=== PATIENT | male | born 2005 | race Two or more races ===

== ENCOUNTER 2024-11-02 17:06 | Emergency (ER) | payer OTHER ==
[~2024-11-02] VITALS: Ht 188 cm; Wt 113.6 kg
[2024-11-02] MEDS ORDERED: IPRATROPIUM BROM 0.5 MG/2.5ML INH SOL NEB ONE (17:45)
[2024-11-02] MEDS: KETOROLAC TROMETH 30 MG/ML 1ML VIAL IV ONE (17:45)
[2024-11-02] MEDS ORDERED: ALBUTEROL SULF 2.5 MG/0.5ML(0.5%) NEB SOLN NEB ONE (17:45)
--- NOTE | 2024-11-02 17:52 | ED.PDOC ---
History of Present Illness HPI Comments 18-year-old male with a history of hypertension and bipolar disorder brought in by EMS complaining of chest pain, onset about 90 minutes ago. Patient states he has been trying to get back to [place] where he lives, has been outdoors in the heat with no detention from the heat or place to stay. He states he had just gotten off of a bus, began smoking a cigarette, then developed pressure-like, nonradiating, moderate severity chest pain associated with shortness of breath. He denies fever, cough, nausea, vomiting, diaphoresis or edema. He admits to being off of his medications including antihypertensives and psych medications. He states he would like to see a director case management to be evaluated for a place to stay. services executive consultation was obtained, however I was advised that the patient would only be provided with referral resources. Patient subsequently stated he was having thoughts of harming himself. He denies any plan or having taken any action to harm himself. Chief Complaint: Chest Pain Time Seen by MD: 17:14 Allergies: Coded Allergies: NO KNOWN ALLERGIES (Unverified , 11/02/24) Mode of Arrival: EMS Past Medical History PAST MEDICAL HISTORY: HTN Past Medical History (Other): Bipolar disorder Surgical History: Denies all surgeries Family History Family History: Reviewed,noncontributory to illness Social History Smoker: Cigarettes Alcohol: Sober Drugs: Denies Drug Use Lives In: Homeless All Other Systems: Reviewed and Negative (Comprehensive systems review obtained and negative except for what is stated in the HPI.) Physical Exam General Appearance: No Apparent Distress HEENT: Other (Pupils and face symmetric. Moist mucous membranes.) Neck: Full Range of Motion, Normal Inspection Respiratory: Chest Non-Tender, Lungs Clear, No Accessory Muscle Use, No Respiratory Distress, Normal Breath Sounds Cardiovascular: No Edema, No JVD, Regular Rate/Rhythm Breast Exam: Deferred Gastrointestinal: Non Tender, Soft Genitalia: Deferred Pelvic: Deferred Rectal: Deferred Extremities: Normal inspection, Normal range of motion, Non-tender, No pedal edema Neurologic: Alert (Oriented x4), Normal Affect, Normal Mood, Other (Ambulatory) Cerebellar Function: NOT DONE Reflexes: NOT DONE Skin: Dry, Normal Color, Warm Lymphatic: NOT DONE Was a procedure done? Was a procedure done?: No EKG EKG : Comments Sinus rhythm, rate 95, normal intervals, normal axis, normal QRS, minimal upsloping ST elevation in anterior leads, likely representing early repolarization Differential Dx Considerations may include: Anxiety, chest wall pain, angina, ACS, [place], asthma/COPD, among others X-Ray, Labs, Meds, VS Vital Signs Date Time Temp Pulse Resp B/P (MAP) Pulse Ox O2 Delivery O2 Flow Rate FiO2 11/02/24 20:05 98.6 88 18 136/55 (82) 99 98.6 11/02/24 18:00 16 98 Room Air* 0 21 11/02/24 17:10 98.2 105 18 134/73 99 98.2 11/02/24 17:08 95 Lab Test 11/02/24 20:55 11/02/24 19:09 11/02/24 18:02 Range/Units Troponin I High Sensitivity < 3 L 4 < 3 L </=54 ng/L White Blood Count 8.1 4.4-10.8 10^3/uL Red Blood Count 5.30 4.5-5.90 10^6/uL Hemoglobin 15.3 13.5-17.5 g/dL Hematocrit 45.6 41.0-53.0 % Mean Corpuscular Volume 85.9 80.0-100.0 fL Mean Corpuscular Hemoglobin 28.9 28.0-32.0 pg Mean Corpuscular Hemoglobin Concent 33.7 32.0-36.0 g/dL Red Cell Distribution Width 13.3 11.8-14.3 % Platelet Count 312 140-450 10^3/uL Mean Platelet Volume 6.8 L 6.9-10.8 fL Neutrophils (%) (Auto) 56.7 37.0-80.0 % Lymphocytes (%) (Auto) 33.1 10.0-50.0 % Monocytes (%) (Auto) 8.5 0.0-12.0 % Eosinophils (%) (Auto) 1.4 0.0-7.0 % Basophils (%) (Auto) 0.3 0.0-2.0 % Neutrophils # (Auto) 4.6 1.6-8.6 10 ^3/uL Lymphocytes # (Auto) 2.7 0.4-5.4 10 ^3/uL Monocytes # (Auto) 0.7 0-1.3 10 ^3/uL Eosinophils # (Auto) 0.1 0-0.8 10 ^3/uL Basophils # (Auto) 0 0-0.2 10 ^3/uL Nucleated Red Blood Cells 0.1 % D-Dimer, Quantitative < 0.19 0.0-0.49 mg/L FEU Sodium Level 142 136-145 mmol/L Potassium Level 4.2 3.5-5.1 mmol/L Chloride Level 108 H 98-107 mmol/L Carbon Dioxide Level 25 20-31 mmol/L Anion Gap 9 5-15 Blood Urea Nitrogen 12 9-23 mg/dL Creatinine 0.79 0.700-1.30 mg/dL Glomerular Filtration Rate Calc 131 >90 mL/min BUN/Creatinine Ratio 15.2 10.0-20.0 Serum Glucose 92 74-106 mg/dL Calcium Level 9.8 8.7-10.4 mg/dL Creatine Kinase 182 H 46-171 U/L B-Type Natriuretic Peptide 11.38 0-100 pg/mL PROCEDURE(s): CXRP - CHEST PORTABLE REASON: cp ORDER NUMBER(s): [id number], ACCESSION NUMBER(s): [id number] CHEST RADIOGRAPH Indication: cp Technique: 1 view Comparison: None FINDINGS: Lines and Tubes: None Lungs: No focal consolidation. Pleura: No effusion or pneumothorax. Cardiomediastinal contours: Unremarkable. Other: No acute osseous abnormality. IMPRESSION: 1. No acute cardiopulmonary abnormality. X-Ray, Labs, Meds, VS Comment 18-year-old male with a history of hypertension and bipolar disorder complaining of chest pain and reporting thoughts of harming himself. Vitals remarkable for heart rate 105 Exam unremarkable Rhythm strip independently interpreted by me: Sinus rhythm, rate 85, no ectopy. Chest x-ray unremarkable CBC, basic metabolic panel, BNP, D-dimer unremarkable, total CK 182, urine drug screen pending Patient treated with the following in the ED: Albuterol 5 mg/Atrovent 0.5 mg nebulized, Toradol 30 mg IV On re-evaluation, patient is sleeping but arousable. He is not in any respiratory distress. Pain has improved. Patient is currently medically cleared. Plan is to obtain tele psych consult. Disposition will be per tele psych recommendations. Time of 1ST Reevaluation: 21:57 Reevaluation 1ST: Improved Consultation: Psychiatry, Cured Meats Supervisor Patient Education/Counseling: Diagnosis, Treatment Family Education/Counseling: No Family Present SEPSIS Sepsis Screen Date sepsis recognized/suspect: Nov 02, 2024 Time Sepsis recognized/suspect: 1709 Recent Procedure: No On Antibiotic Therapy: No Respiratory Rate >20: No Heart Rate >90: No Temp<36 C (96.8 F) or >38.3 C: No SBP <90 or MAP <65 mmHG: No New Acute Mental Status Change: No Is the patient on CPAP, BIPAP,: No Physician Orders Chest Portable (11/02/24 17:31) Urinalysis (11/02/24 17:14) Electrocardigram (11/02/24 17:14) Drug Screen (11/02/24 17:14) Electrocardigram (11/02/24 18:14) Electrocardigram (11/02/24 20:14) * Cured Meats Supervisor Consult (11/02/24 ) *Tele Psych Consult (11/02/24 21:47) Vital Signs Date Time Temp Pulse Resp B/P (MAP) Pulse Ox O2 Delivery O2 Flow Rate FiO2 11/02/24 20:05 98.6 88 18 136/55 (82) 99 98.6 11/02/24 18:00 16 98 Room Air* 0 21 11/02/24 17:10 98.2 105 18 134/73 99 98.2 11/02/24 17:08 95 Laboratory Tests Test 11/02/24 18:02 White Blood Count 8.1 10^3/uL (4.4-10.8) Departure 1 Departure Time of Disposition: 21:58 Impression: Primary Impression: Chest pain with low risk for cardiac etiology Additional Impression: Thoughts of self harm Disposition: 30 STILL A PATIENT Condition: Stable Critical Care Note Critical Care Time?: No Stability Stability form required: No Heart Score Heart Score: Heart Score Response (Comments) Value History Slightly Suspicious 0 EKG Repolarization Disturb 1 Age <45 0 Risk Factors 1 or 2 risk factors 1 Troponin Normal limit 0 Total 2 JANNA DEAN MD Nov 02, 2024 17:52
[2024-11-02] MEDS ORDERED: IPRATROPIUM BROM 0.5 MG/2.5ML INH SOL ONE (18:00)
[2024-11-02] MEDS ORDERED: ALBUTEROL SULF 2.5 MG/0.5ML(0.5%) NEB SOLN ONE (18:00)
[2024-11-02 18:20] LABS: Hematocrit 45.6 % (41.0-53.0); Hemoglobin 15.3 g/dL (13.5-17.5); Mean Corpuscular Hemoglobin 28.9 pg (28.0-32.0); Mean Corpuscular Volume 85.9 fL (80.0-100.0); Nucleated Red Blood Cells % 0.1 %
[2024-11-02 18:31] LABS: Potassium 4.2 mmol/L (3.5-5.1); Sodium 142 mmol/L (136-145)
[2024-11-02 18:32] LABS: Anion Gap 9 (5-15); Carbon Dioxide 25 mmol/L (20-31)
[2024-11-02 18:33] LABS: Calcium 9.8 mg/dL (8.7-10.4)
[2024-11-02 18:34] LABS: Chloride 108 mmol/L (98-107)
[2024-11-02 18:37] LABS: BUN/Creatinine Ratio 15.2 (10.0-20.0); Blood Urea Nitrogen 12 mg/dL (9-23); Glucose 92 mg/dL (74-106)
--- NOTE | 2024-11-02 22:41 | DVH ---
CHEST RADIOGRAPH Indication: cp Technique: 1 view Comparison: None FINDINGS: Lines and Tubes: None Lungs: No focal consolidation. Pleura: No effusion or pneumothorax. Cardiomediastinal contours: Unremarkable. Other: No acute osseous abnormality. IMPRESSION: 1. No acute cardiopulmonary abnormality.
--- NOTE | 2024-11-03 03:03 | DVHINCON2 ---
Date of Service if different f: Nov 03, 2024 Time of Service: 03:03 Consult Consult Note PSYCHIATRY ED NEW CONSULT HPI: 18 yo pt with PPH of depression presents to ED BIBA for safety, psychiatric stabilization, and possible med initiation/optimization in setting of homelessness, CP, and passive SI. Psychiatry consulted for safety evaluation and recommendations in context of current presentation Pt reports over past several weeks experiencing worsening depressed mood, hopelessness/helplessness, negative thoughts, poor sleep, low self-worth and anxiety symptoms to include rumination, anger/aggressive outbursts, emotional dysregulation, mood reactivity, restlessness, racing/intrusive thoughts, palpitations, feeling tensed, and irritability although some symptoms appear chronic in nature. Also intermittent fleeting SI with no plan resulting in some interference with daily functioning. Also self-medicating with increased ET OH/THC/Meth use, last use several weeks ago. Identifies primary stress as unemployment, lack of meaningful relationships, inadequate housing, limited support system, and financial strains as he ultimately plans to move back to [place] where his parent resides. Denies HI/AVH/paranoia/catatonic/perceptual disturbances. No overt manic, psychotic, MDD, cognitive, dissociative phenomena, panic, OCD, PTSD, or somatic symptoms noted Does not have active outpt MH services established at this time although has sought outpt MH services in past. Currently not on any psychotropic agents for past several months, prior psych med trials lexapro, some hx of med noncompliance noted Denies ETOH, THC or IDU prior to admission although mild hx of THC/ETOH/meth dependency, last use of all several weeks ago, never IVDU, never previously in any drug/etoh tx programs in past Originally from [place], single, no children, unemployed, homeless for past several years, limited support system noted (immediate family, primarily his mother) Unknown trauma hx. Denies FH of psych hospitalizations, suicide attempts, or completed suicides No acute medical/chronic pain issues, hx of seizures/TBI, or recent head injuries, NKDA Denies hx of SI/SIB via cutting/burning - last incident several months ago, several SA/PSG via hanging but none since 2020 resulting in multiple prior psych hospitalizations/5150 holds, last admission earlier this year for SI. Some history of aggression/assaultive behaviors resulting in prior arrests, no legal problems currently. Does not have access to firearms MSE: General Appearance/Behavior: Alert/awake; appears stated age, overweight, fair grooming/hygiene; calm and cooperative, fair eye contact, no PMA/PMR Speech: coherent, rrr, some expletive use Thought Process: L/L/GD Thought Content: Abnormal Thoughts/Perceptions: denies dissociative symptoms Homicidality / Violent Thoughts: adamantly denies HI Suicidality: + SI Hallucinations: denies AVTH Delusions: denies paranoia, persecutory, or grandiose delusions Obsessions /compulsions: None Judgment/Insight: fair/fair Mood & Affect: "bit depressed" with mood-congruent, somewhat irritable Orientation: oriented x 3 Attention/Concentration: appears intact Cognition: grossly intact Assessment: 18 yo pt with PPH of depression presents to ED BIBA for safety, psychiatric stabilization, and possible med initiation/optimization in setting of homelessness, CP, and passive SI Pt currently expressing some SI in setting of several recent acute life stressors, primarily lack of adequate housing (see hpi). Limited protective factors presently. Not on any psychotropics which may be contributing to current symptoms. No outpt MH services at present. Hx of SIB/SA and poor judgment/impulsivity resulting in prior psych hospitalizations. Pt agrees to talk with staff instead of acting on any suicidal feelings while in ED. Pt medically cleared in ED Acute safety risk remains slightly elevated and is appropriate for inpatient psychiatric admission for further safety, psychiatric stabilization, and possible medication initiation/optimization. Pt willing to transfer to inpt psych facility voluntarily. Consider 5150 hold for DTS ONLY if needed for transfer or if no voluntary beds are available. Pt may also benefit from housing/subst abuse/MH resources during this admission Primary Diagnosis: Adjustment disorder with depressed mood and anxiety. Depressive disorder unspecified. THC / etoh/ meth use d/o, unspecified. R/o Personality disorder unspecified. R/o Malingering Recommend VOL transfer to inpt psych facility for higher level of care 1:1 sitter is not recommended Maintain suicide/elopement precautions Recommend restarting Escitalopram 10 mg po qd and Trazodone 50 mg qhs prn Defer any psychotropic med changes to accepting inpt psych facility may benefit from addition of mood stabilizer Risks/benefits/alternative treatments discussed, informed consent provided by pt If patient later refuses voluntary hospitalization/ requests to be discharged from ED prior to transfer or if no voluntary beds are available, please reconsult telepsych services to evaluate for 5150 hold Pt verbalized understanding and is receptive to above tx plan This case was discussed with ED nurse/provider and all parties in agreement with above tx plan Harris Mcdaniels MD Plan discussed with: Patient HARRIS MCDANIELS MD Nov 03, 2024 03:03
[2024-11-03 09:42] VITALS: PULSE 65; RESP 16; O2SAT 98
[2024-11-03 18:34] VITALS: BP 142/91; PULSE 104; RESP 16; TEMP 98.4; O2SAT 97
[2024-11-04] MEDS ORDERED: CITALOPRAM HYDROBR 20 MG TAB PO SCH (10:00)
== END 2024-11-03 15:29 | disposition short-term general hospital (02) ==
LOC: ER 17:06 → EDBD 17:06 → ER 11-03 15:29
DX: R07.89 Other chest pain (principal); R45.851 Suicidal ideations; I10 Essential (primary) hypertension; F17.210 Nicotine dependence, cigarettes, uncomplicated; Z59.00 Homelessness unspecified; Z79.899 Other long term (current) drug therapy
CPT/HCPCS: 36415; 71045; 80048; 82550; 83880; 84484; 85025; 85379; 94640; J1885